=== PATIENT | female | born 1950 | race Caucasian/White ===

== ENCOUNTER → 2017-02-12 | Outpatient (CLI) | payer OTHER, MEDICARE ==
[2017-02-12 10:15] LABS: BASOPHILS # (AUTO) 0.02 10*3/UL; BASOPHILS % (AUTO) 0.4 % (0-1); EOSINOPHILS # (AUTO) 0.16 10*3/UL; EOSINOPHILS % (AUTO) 3.2 % (0-8); HEMATOCRIT 38.5 % (37.0-47.0); HEMOGLOBIN 12.2 g/dL (12.0-16.0); LYMPHOCYTES # (AUTO) 1.86 10*3/uL; MEAN CORPUSCULAR HEMOGLOBIN 31.9 PG (27-31); MEAN CORPUSCULAR HGB CONC 31.7 g/dL (33-37); MEAN CORPUSCULAR VOLUME 100.5 FL (81-99); MEAN PLATELET VOLUME 10.3 FL (7.4-12.2); MONOCYTES # (AUTO) 0.46 10*3/UL (0.3-0.8); MONOCYTES % (AUTO) 9.2 % (5-15); NEUTROPHILS # (AUTO) 2.51 10*3/UL; NEUTROPHILS % (AUTO) 49.9 % (50-80); RED BLOOD COUNT 3.83 10^6/uL (4.20-5.40)
[2017-02-12 10:22] LABS: PLATELET MORPHOLOGY COMMENT NORMAL MORPHOLOGY (NORM); RBC MORPHOLOGY COMMENT NORMAL MORPHOLOGY (NORM); WBC MORPHOLOGY COMMENT NORMAL MORPHOLOGY (NORM)
[2017-02-12 10:27] LABS: BLOOD UREA NITROGEN 10 mg/dL (7-22); BUN/CREATININE RATIO 16.66 (6-20); CALCIUM 8.9 mg/dL (8.7-10.7); EST GLOMERULAR FILTRATION > 60 (>60 ml/min/1.73m(2)); HDL CHOLESTEROL 51 mg/dL (40-150); MAGNESIUM 1.8 mg/dL (1.6-2.4); PHOSPHORUS 3.5 mg/dl (2.4-4.3); SERUM ALBUMIN 3.9 g/dL (3.5-4.8); SERUM CHOLESTEROL 153 mg/dL (120-200)
[2017-02-12 10:31] LABS: HEMOGLOBIN A1C 4.76 % (4.2-6.0)
== END ==
LOC: MOB LAB 09:28
PROVIDERS: ATTEND Family Medicine
DX: M81.0 Age-related osteoporosis without current pathological fracture (principal); E55.9 Vitamin D deficiency, unspecified; E78.5 Hyperlipidemia, unspecified; Z79.899 Other long term (current) drug therapy
CPT/HCPCS: 36415; 80053; 80061; 83036; 83735; 84100; 84439; 84443; 85025

== ENCOUNTER → 2017-02-20 | Outpatient (CLI) | payer OTHER, MEDICARE | LOC: MMPC 09:00 | PROVIDERS: ATTEND Family Medicine | DX: M81.0 Age-related osteoporosis without current pathological fracture (principal); E55.9 Vitamin D deficiency, unspecified; M54.5 Low back pain; Z78.0 Asymptomatic menopausal state | CPT/HCPCS: G0439; G0463; J0897 ==